=== PATIENT | female | born 1945 | race Caucasian/White ===

== ENCOUNTER 2022-02-15 08:21 | Emergency (ER) | payer MEDICARE, OTHER ==
[~2022-02-15] VITALS: Ht 152.4 cm; Wt 85.7 kg
--- NOTE | 2022-02-15 08:25 | NUR ---
[id number] DIALYS[facility] CENTED FOR GLF, C/O R HIP AREA PAIN dialysis completed 02/15/22
[2022-02-15] MEDS ORDERED: ACETAMINOPHEN 325 MG TABLET PO ONE (08:30)
[2022-02-15] MEDS ORDERED: ONDANSETRON 4 MG TAB.RAPDIS SL ONE (08:30)
[2022-02-15] MEDS ORDERED: ACETAMINOPHEN 325 MG TABLET ONE (08:50)
[2022-02-15] MEDS ORDERED: ONDANSETRON 4 MG TAB.RAPDIS ONE (08:50)
--- NOTE | 2022-02-15 08:55 | NUR ---
pt returned from x ray
[2022-02-15 09:02] LABS: BASOPHILS % (AUTO) 0.3 % (0.0-2.0); EOSINOPHILS % (AUTO) 1.6 % (0.0-6.0); HEMATOCRIT 29 % (33-45); HEMOGLOBIN 9.4 g/dL (11.5-14.8); LYMPHOCYTES # (AUTO) 0.6 K/uL (0.8-4.8); MEAN CORPUSCULAR HGB CONC 33 g/dl (31.0-36.0); MEAN CORPUSCULAR VOLUME 100 fL (82-100); MONOCYTES # (AUTO) 0.6 K/uL (0.1-1.30); MONOCYTES % (AUTO) 10.1 % (2.0-12.0); NEUTROPHILS # (AUTO) 4.8 K/uL (1.8-8.9); PLATELET COUNT (AUTO) 114 K/uL (150-450); RED BLOOD CELL COUNT(AUTO) 2.85 MIL/uL (4.0-5.2); WHITE BLOOD COUNT (AUTO) 6.1 K/uL (4.3-11.0)
[2022-02-15 09:18] LABS: CALCIUM, SERUM 7.7 mg/dL (8.5-10.1); CARBON DIOXIDE 26 mmol/L (21-32); CHLORIDE 95 mmol/L (98-107); CREATININE 6.8 mg/dL (0.6-1.3); GLUCOSE 162 mg/dL (74-106); POTASSIUM 3.9 mmol/L (3.5-5.1); SODIUM SERUM 136 mmol/L (136-145); UREA NITROGEN, BLOOD 66 mg/dL (7-18)
--- NOTE | 2022-02-15 10:03 | NUR ---
pt taken to CT
--- NOTE | 2022-02-15 10:17 | NUR ---
pt returned from ct
[2022-02-15 12:35] VITALS: BP 145/60
== END 2022-02-15 12:36 | disposition home or self-care (01) ==
LOC: ER 08:25
DX: S32.502A Unspecified fracture of left pubis, initial encounter for closed fracture (principal); S39.82XA Other specified injuries of lower back, initial encounter; I12.0 Hypertensive chronic kidney disease with stage 5 chronic kidney disease or end stage renal disease; E11.22 Type 2 diabetes mellitus with diabetic chronic kidney disease; N83.9 Noninflammatory disorder of ovary, fallopian tube and broad ligament, unspecified; N18.6 End stage renal disease; Z99.2 Dependence on renal dialysis; W18.30XA Fall on same level, unspecified, initial encounter; Y93.89 Activity, other specified; Y92.89 Other specified places as the place of occurrence of the external cause; Y99.8 Other external cause status
CPT/HCPCS: 99285; 72131; 72170; 72192; 85025; 80048; 36415; Q0162